=== PATIENT | female | born 1940 | race Caucasian/White ===

== ENCOUNTER 2019-07-19 11:18 | Emergency (ER) | payer MEDICARE, OTHER ==
[2019-07-19 11:25] VITALS: BP 163/74; PULSE 75
--- NOTE | 2019-07-19 11:35 | EDM.PDOC ---
ED HPI GENERAL MEDICAL PROBLEM - General Chief Complaint: Abdominal Pain Stated Complaint: [facility] Time Seen by Provider: 07/19/19 11:26 Source of Information: Reports: Patient, EMS Notes Reviewed, RN Notes Reviewed History Limitations: Reports: No Limitations - History of Present Illness INITIAL COMMENTS - FREE TEXT/NARRATIVE: Patient is an 79-year-old female who presents to the ED via [facility], for the evaluation of abdominal pain. Patient notes she was awakened from sleep at around 130 this morning today, with periumbilical pain that has now radiated to her right lower quadrant. She states she did not get much sleep last night, as it was hard to find a comfortable position due to the pain. Patient woke up at 6 AM, and the pain was still there. She notes that the pain is kind of a constant ache, but intensifies with a strong cramp sensation from time to time. She notes that the bumps in the road do not feel so great as well. She denies any fevers or chills, nausea/vomiting/diarrhea, chest pain or shortness of breath, or any urinary issues like dysuria, urinary frequency or urinary urgency. Patient notes she has not had any abdominal surgeries, but did have a hysterectomy, but her ovaries are still in place. Patient notes that she did also have a normal bowel movement this morning. She did not take any sort of medications at home for the pain. She has never felt pain like this in her abdomen before. The patient does note a most recent history of issues with her blood pressure, she was evaluated at the clinic earlier this week, as she felt her heart was racing, she states that she was started on diltiazem for this, she has had pretty good relief of symptoms since starting the diltiazem. She does have a primary care provider, this is Dr. Brian Tobias out of [facility]. Right Lower Abdomen Pain Score (Numeric/FACES): 7 - Related Data Allergies Allergy/AdvReac Type Severity Reaction Status Date / Time ibuprofen Allergy Stomach Verified 07/19/19 11:25 Upset Home Meds: Home Meds Losartan Potassium 100 mg PO DAILY 05/14/14 [History] hydroCHLOROthiazide [Hydrochlorothiazide] 12.5 mg PO DAILY 05/14/14 [History] Ciprofloxacin [Ciprofloxacin HCl] 500 mg PO BID #14 tab 07/19/19 [Rx] Dicyclomine [Bentyl] 20 mg PO QID PRN #24 tab 07/19/19 [Rx] Diltiazem HCl [Diltiazem 24Hr ER] 120 mg PO DAILY 07/19/19 [History] Multivitamin [Multivitamins] 1 cap PO DAILY 07/19/19 [History] metroNIDAZOLE [Flagyl] 500 mg PO Q8H #21 tab 07/19/19 [Rx] Past Medical History HEENT History: Reports: Impaired Vision Cardiovascular History: Reports: Hypertension Gastrointestinal History: Reports: Colon Polyp, GERD Musculoskeletal History: Reports: Osteoarthritis - Infectious Disease History Infectious Disease History: Reports: Chicken Pox, Measles, Mumps - Past Surgical History HEENT Surgical History: Reports: Oral Surgery Female Surgical History: Reports: Hysterectomy Musculoskeletal Surgical History: Reports: Other (See Below) Other Musculoskeletal Surgeries/Procedures:: bunion removal x3 Social & Family History - Family History Family Medical History: Noncontributory - Tobacco Use Smoking Status *Q: Former Smoker Used Tobacco, but Quit: Yes Month/Year Tobacco Last Used: 1967 - Caffeine Use Caffeine Use: Reports: Coffee - Recreational Drug Use Recreational Drug Use: No - Living Situation & Occupation Living situation: Reports: , with Spouse Occupation: Retired ED ROS GENERAL - Review of Systems Review Of Systems: See Below Constitutional: Denies: Fever, Chills, Malaise, Decreased Appetite HEENT: Reports: No Symptoms Respiratory: Denies: Shortness of Breath Cardiovascular: Denies: Chest Pain Endocrine: Reports: No Symptoms GI/Abdominal: Reports: Abdominal Pain (Periumbilical/RLQ pain). Denies: Constipation, Diarrhea, Decreased Appetite, Nausea, Vomiting : Denies: Dysuria, Flank Pain, Frequency, Urgency Musculoskeletal: Reports: Back Pain (chronic d/t scoliosis). Denies: Leg Pain Skin: Reports: No Symptoms Neurological: Reports: No Symptoms Psychiatric: Reports: No Symptoms Hematologic/Lymphatic: Reports: No Symptoms Immunologic: Reports: No Symptoms ED EXAM, GI/ABD - Physical Exam Exam: See Below Exam Limited By: No Limitations General Appearance: Alert, WD/WN, No Apparent Distress Eyes: Bilateral: Normal Appearance Ears: Normal External Exam Nose: Normal Inspection Throat/Mouth: Normal Inspection, Normal Lips, Normal Teeth, Normal Gums, Normal Oropharynx, Normal Voice, No Airway Compromise Head: Atraumatic, Normocephalic Neck: Normal Inspection Respiratory/Chest: No Respiratory Distress, Lungs Clear, Normal Breath Sounds, No Accessory Muscle Use, Chest Non-Tender Cardiovascular: Normal Peripheral Pulses, Regular Rate, Rhythm, No Murmur GI/Abdominal Exam: Normal Bowel Sounds, Soft, No Distention, No Mass, Tender ( RLQ/periumbilical). No: Guarding, Rigid, Rebound Extremities: Normal Inspection, Normal Capillary Refill Neurological: Alert, Oriented, Normal Cognition, No Motor/Sensory Deficits Psychiatric: Normal Affect, Normal Mood Skin Exam: Warm, Dry, Intact, Normal Color, No Rash Course - Vital Signs Last Recorded V/S: Last Vital Signs Temp 97.2 F 07/19/19 11:23 Pulse 75 07/19/19 11:23 Resp 18 07/19/19 11:23 BP 163/74 H 07/19/19 11:23 Pulse Ox 94 L 07/19/19 11:23 - Orders/Labs/Meds Orders: Active Orders 24 hr Category Date Time Status Abdomen Pelvis w Cont [CT] Stat Exams 07/19/19 11:44 Ordered Sodium Chloride 0.9% [Normal Saline] 1,000 ml Med 07/19/19 11:45 Ordered IV ASDIRECTED Sodium Chloride 0.9% [Saline Flush] Med 07/19/19 13:32 Active 10 ml FLUSH ONETIME PRN Medication Orders Sodium Chloride (Normal Saline) 1,000 mls @ 500 mls/hr IV ASDIRECTED MILADIS Last Admin: 07/19/19 12:11 Dose: 500 mls/hr Sodium Chloride (Saline Flush) 10 ml FLUSH ONETIME PRN PRN Reason: IV FLUSH Last Admin: 07/19/19 13:37 Dose: 10 ml Labs: Laboratory Tests 07/19/19 07/19/19 07/19/19 Range/Units 12:05 12:05 13:15 WBC 12.62 H (3.98-10.04) K/mm3 RBC 5.00 (3.98-5.22) M/mm3 Hgb 14.8 (11.2-15.7) gm/dl Hct 44.2 (34.1-44.9) % MCV 88.4 (79.4-94.8) fl MCH 29.6 (25.6-32.2) pg MCHC 33.5 (32.2-35.5) g/dl RDW Std Deviation 42.9 (36.4-46.3) fL Plt Count 267 (182-369) K/mm3 MPV 9.7 (9.4-12.3) fl Neutrophils % (Manual) 55 (40-60) % Band Neutrophils % 0 (0-10) % Lymphocytes % (Manual) 32 (20-40) % Atypical Lymphs % 0 % Monocytes % (Manual) 10 (2-10) % Eosinophils % (Manual) 3 (0.7-5.8) % Basophils % (Manual) 0 L (0.1-1.2) Platelet Estimate Adequate RBC Morph Comment Normal Sodium 133 L (136-145) mEq/L Potassium 3.5 (3.5-5.1) mEq/L Chloride 97 L (98-107) mEq/L Carbon Dioxide 29 (21-32) mEq/L Anion Gap 10.5 (5-15) BUN 13 (7-18) mg/dL Creatinine 0.7 (0.55-1.02) mg/dL Est Cr Clr Drug Dosing TNP Estimated GFR (MDRD) > 60 (>60) mL/min BUN/Creatinine Ratio 18.6 H (14-18) Glucose 90 (83-115) mg/dL Calcium 9.2 (8.5-10.1) mg/dL Total Bilirubin 0.7 (0.2-1.0) mg/dL AST 24 (15-37) U/L ALT 23 (14-59) U/L Alkaline Phosphatase 67 (46-116) U/L Total Protein 7.8 (6.4-8.2) g/dl Albumin 4.1 (3.4-5.0) g/dl Globulin 3.7 gm/dL Albumin/Globulin Ratio 1.1 (1-2) Urine Color Yellow (Yellow) Urine Appearance Clear (Clear) Urine pH 7.0 (5.0-8.0) Ur Specific [place] 1.025 (1.005-1.030) Urine Protein Negative (Negative) Urine Glucose (UA) Negative (Negative) Urine Ketones Trace H (Negative) Urine Occult Blood Negative (Negative) Urine Nitrite Negative (Negative) Urine Bilirubin Negative (Negative) Urine Urobilinogen 0.2 (0.2-1.0) Ur Leukocyte Esterase Negative (Negative) Urine RBC 0-5 (0-5) /hpf Urine WBC 0-5 (0-5) /hpf Ur Squamous Epith Cells 0-5 (0-5) /hpf Urine Bacteria Few (FEW) /hpf Urine Mucus Rare (FEW) /hpf Meds: Medications Generic Name Dose Route Start Last Admin Trade Name Freq PRN Reason Stop Dose Admin Sodium Chloride 1,000 mls @ 500 mls/hr 07/19/19 11:45 07/19/19 12:11 Normal Saline IV 500 mls/hr ASDIRECTED MILADIS Administration Sodium Chloride 10 ml 07/19/19 13:32 07/19/19 13:37 Saline Flush FLUSH 10 ml ONETIME PRN Administration IV FLUSH Discontinued Medications Generic Name Dose Route Start Last Admin Trade Name Freq PRN Reason Stop Dose Admin Diatrizoate Meglum/Diatrizoate Sod 120 ml 07/19/19 13:32 07/19/19 13:36 Gastrografin 37% PO 07/19/19 13:33 90 ml ONETIME ONE Administration Dicyclomine HCl 20 mg 07/19/19 14:47 Bentyl PO 07/19/19 14:48 ONETIME ONE Iopamidol 100 ml 07/19/19 13:32 07/19/19 13:36 Isovue-300 (61%) IVPUSH 07/19/19 13:33 100 ml ONETIME ONE Administration Ondansetron HCl 4 mg 07/19/19 11:44 07/19/19 12:10 Zofran IVPUSH 07/19/19 11:45 4 mg ONETIME ONE Administration - Re-Assessments/Exams Free Text/Narrative Re-Assessment/Exam: 07/19/19 11:52 Patient presents to the ED for the evaluation of abdominal pain. Did order IV with IV fluids, 4 mg Zofran, CBC, CMP, UA and an abdominal pelvis CT with oral and IV contrast for further evaluation. 07/19/19 14:[address] is done, and read per [facility], they do appreciate pericolonic fat stranding noted adjacent to the ascending colon and transverse colon consistent with mild colitis. Mild thickening of the lang of the small bowel consistent with enteritis and ileus. But no definite small bowel as imaged. The appendix was visualized, and does appear to be within normal limits. I did discuss the findings with Dr. Geiger, and he suggests placing the patient on a combination of Cipro and Flagyl for the colitis and sending her home at this time. I will discuss the findings with the patient and likely discharge her home with these antibiotics and have her follow-up with her primary care provider sometime this next week if not feeling much better. Departure - Departure Time of Disposition: 14:58 Disposition: Home, Self-Care 01 Condition: Fair Clinical Impression: Colitis Abdominal pain Qualifiers: Abdominal location: periumbilical Qualified Code(s): R10.33 - Periumbilical pain - Discharge Information *PRESCRIPTION DRUG MONITORING PROGRAM REVIEWED*: No *COPY OF PRESCRIPTION DRUG MONITORING REPORT IN PATIENT RANDELL: No Prescriptions: Ciprofloxacin [Ciprofloxacin HCl] 500 mg PO BID #14 tab Dicyclomine [Bentyl] 20 mg PO QID PRN #24 tab PRN Reason: Abdominal Pain metroNIDAZOLE [Flagyl] 500 mg PO Q8H #21 tab Instructions: Colitis Forms: ED Department Discharge Additional Instructions: You were evaluated in the ER today regarding your abdominal pain. You did get some IV fluids, had some labs drawn, and had an abdomen pelvis CT done. Your labs are essentially within normal limits, there is no sign of any acute bacterial infection, your electrolytes were also within normal limits, your kidney function and liver function also look great. Your CT did demonstrate some inflammation around the ascending colon, and the transverse colon, that is consistent with mild colitis. There was no small bowel obstruction identified. You will be treated with 2 different antibiotics, ciprofloxacin 500 mg twice daily, and Flagyl 500 mg 3 times daily for the next 7 days for management of this. You were also given a prescription for dicyclomine, this is to help with the abdominal cramping, please take 1 tab 4 times daily as needed for abdominal cramps. These medications were electronically prescribed to the [facility] pharmacy located near [facility]. Recommend that you follow-up with your primary care provider, sometime this next week. You will need to try to give the antibiotics a good 24 to 48 hours to take effect. If you should develop worsening abdominal pain, or worsening bloating, this would be cause for concern to come to the ER, as there might be a small obstruction has developed. Please return to the ED at any time if your symptoms change or worsen. - My Orders Last 24 Hours: My Active Orders 07/19/19 11:44 Abdomen Pelvis w Cont [CT] Stat 07/19/19 11:45 Sodium Chloride 0.9% [Normal Saline] 1,000 ml IV ASDIRECTED 07/19/19 13:32 Sodium Chloride 0.9% [Saline Flush] 10 ml FLUSH ONETIME PRN - Assessment/Plan Last 24 Hours: My Active Orders 07/19/19 11:44 Abdomen Pelvis w Cont [CT] Stat 07/19/19 11:45 Sodium Chloride 0.9% [Normal Saline] 1,000 ml IV ASDIRECTED 07/19/19 13:32 Sodium Chloride 0.9% [Saline Flush] 10 ml FLUSH ONETIME PRN
[2019-07-19] MEDS ORDERED: Ondansetron 4 MG/2 ML SDV IVPUSH ONE (11:44)
[2019-07-19] MEDS ORDERED: Sodium Chloride 0.9% 1,000 ML IV SCH (11:45)
[2019-07-19] MEDS ORDERED: Sodium Chloride 0.9% 10 ML Syringe FLUSH PRN (13:32)
[2019-07-19] MEDS ORDERED: Iopamidol 612 MG/ML 100 ML Bottle IVPUSH ONE (13:32)
[2019-07-19] MEDS ORDERED: Diatrizoate Meglumine/Diatrizoate Sodium 37% 120 ML Bottle PO ONE (13:32)
[2019-07-19] MEDS ORDERED: Dicyclomine 10 MG Cap PO ONE (14:47)
--- NOTE | 2019-07-21 09:12 | CT ---
CT abdomen and pelvis Technique: Multiple axial sections were obtained from above the dome of the diaphragm inferiorly through the pubic symphysis. Intravenous and oral contrast was utilized. Delayed images were obtained through the bladder. Comparison: No prior abdominal imaging is available. Findings: Slight atelectasis is noted within the right lung base. Nothing acute is appreciated within either lung base. Mild coronary artery calcification is seen. Heart is mildly enlarged. Small amount of fluid is identified around the liver. Minimal fluid is noted within the pelvis. Liver shows a minimal low density lesion within the right lobe measuring about 6 mm. This is too small to accurately measure by Hounsfield unit measurement but statistically is most likely due to a cyst. Kidneys show several small cysts. Delayed image shows contrast within the bladder. Bowel wall thickening is seen within distal ileal loops and small bowel is mildly prominent in size. Appendix is seen which is normal. Pancreas appears within normal limits. Very minimal areas of increased density within the adjacent fat of the transverse and right colon which is most likely chronic. I do not believe that there is an acute colitis. Small fat-containing umbilical hernia is noted. Moderately large hiatal hernia is seen. Gallbladder contains no calcified gallstones. Scoliosis is noted within the spine with diffuse degenerative change. Impression: 1. Dilated small bowel loops. Wall thickening within distal ileal loops compatible with enteritis. Dilated small bowel loops most likely representing ileus from the enteritis. 2. Slight increased density within the fat around the transverse and right colon which is most likely chronic. I do not believe any definite acute colitis is present. 3. Small amount of fluid around the right lobe of the liver. Minimal fluid within the pelvis. This is most likely reactive from the small bowel process. 4. Other nonacute findings as noted above. Diagnostic code #3 This report was dictated in [place] Standard Time I mostly agree with preliminary report issued by [facility] (please see above) ([facility] report finalized on 07/19/19, 3:10 PM Central Time)
== END 2019-07-19 15:22 | disposition home or self-care (01) ==
LOC: JD.ED 11:18
DX: K52.9 Noninfective gastroenteritis and colitis, unspecified (principal); I10 Essential (primary) hypertension; Z88.6 Allergy status to analgesic agent; Z87.891 Personal history of nicotine dependence; Z79.899 Other long term (current) drug therapy
CPT/HCPCS: 36415; 74177; 80053; 81001; 85007; 85027; 96361; 96374; 99284; A9270; J2405; J7040; Q9963; Q9967; J7030

== ENCOUNTER 2021-01-09 13:44 | Emergency (ER) | payer MEDICARE, OTHER ==
[2021-01-09 13:56] VITALS: BP 162/107; PULSE 113
[2021-01-09] MEDS ORDERED: Diphtheria,Pertussis(Acell),Tetanus Vaccine 0.5 ML Syringe IM ONE (14:31)
--- NOTE | 2021-01-09 14:31 | EDM.PDOC ---
ED HPI GENERAL MEDICAL PROBLEM - General Chief Complaint: Upper Extremity Injury/Pain Stated Complaint: LT RING FINGER LAC Time Seen by Provider: 01/09/21 13:46 Source of Information: Reports: Patient, Significant Other History Limitations: Reports: No Limitations - History of Present Illness INITIAL COMMENTS - FREE TEXT/NARRATIVE: He had a trip and fall landing on outstretched finger injuring her left ring finger with an avulsion to the tip of her ring finger on the left she also hit her head and hit the right mastoid area. No loss of consciousness associated with it no neck pain or chest pain or breathing problems with it. She does take Eliquis for atrial fibrillation however. Denies any nausea vomiting blurred vision or focal neurologic changes. Last tetanus has been greater than 10 years. No allergies to anesthetics. Right Handed. Left Finger-Ring Pain Score (Numeric/FACES): 7 - Related Data Allergies Allergy/AdvReac Type Severity Reaction Status Date / Time ibuprofen Allergy Stomach Verified 01/09/21 13:56 Upset Home Meds: Home Meds Losartan Potassium 100 mg PO DAILY 05/14/14 [History] hydroCHLOROthiazide [Hydrochlorothiazide] 12.5 mg PO DAILY 05/14/14 [History] Ciprofloxacin [Ciprofloxacin HCl] 500 mg PO BID #14 tab 07/19/19 [Rx] Dicyclomine [Bentyl] 20 mg PO QID PRN #24 tab 07/19/19 [Rx] Multivitamin [Multivitamins] 1 cap PO DAILY 07/19/19 [History] dilTIAZem HCL [Diltiazem 24Hr ER] 120 mg PO DAILY 07/19/19 [History] metroNIDAZOLE [Flagyl] 500 mg PO Q8H #21 tab 07/19/19 [Rx] cephALEXin [Keflex] 500 mg PO BID #9 cap 01/09/21 [Rx] Past Medical History HEENT History: Reports: Impaired Vision Cardiovascular History: Reports: Hypertension Gastrointestinal History: Reports: Colon Polyp, GERD Musculoskeletal History: Reports: Osteoarthritis - Infectious Disease History Infectious Disease History: Reports: Chicken Pox, Measles, Mumps - Past Surgical History HEENT Surgical History: Reports: Oral Surgery Cardiovascular Surgical History: Reports: Varicose Female Surgical History: Reports: Hysterectomy Musculoskeletal Surgical History: Reports: Other (See Below) Other Musculoskeletal Surgeries/Procedures:: bunion removal x3 Social & Family History - Family History Family Medical History: No Pertinent Family History - Tobacco Use Tobacco Use Status *Q: Never Tobacco User Second Hand Smoke Exposure: No - Caffeine Use Caffeine Use: Reports: None - Recreational Drug Use Recreational Drug Use: No - Living Situation & Occupation Living situation: Reports: , with Spouse Occupation: Retired Review of Systems - Review of Systems Review Of Systems: See Below Eyes: Reports: Other (Bilateral cataracts with intraocular lenses). Denies: Vision Change Ears: Reports: Pain. Denies: Dizziness, Tinnitus, Bloody Discharge, Clear Discharge Nose: Denies: Epistaxis Mouth/Throat: Reports: No Symptoms Respiratory: Reports: No Symptoms. Denies: Cough Cardiovascular: Denies: Chest Pain, Lightheadedness GI/Abdominal: Denies: Nausea, Vomiting Musculoskeletal: Reports: Hand Pain Skin: Reports: Wound Neurological: Reports: No Symptoms, Headache. Denies: Numbness, Paresthesia, Syncope, Tingling, Trouble Speaking, Weakness Psychiatric: Reports: No Symptoms ED EXAM, GENERAL - Physical Exam Exam: See Below Exam Limited By: No Limitations General Appearance: Alert, WD/WN, No Apparent Distress Eye Exam: Bilateral Eye: EOMI, PERRL Ears: Normal TMs Ear Exam: Bilateral Ear: TM normal Nose: Normal Inspection Throat/Mouth: Normal Inspection, Normal Oropharynx Head: Other (Some swelling and redness on the right mastoid/posterior auricular area.) Respiratory/Chest: No Respiratory Distress, Lungs Clear, No Accessory Muscle Use Cardiovascular: Normal Peripheral Pulses, Regular Rate, Rhythm, No Edema GI/Abdominal: Normal Bowel Sounds, Non-Tender Extremities: Other (Avulsion laceration of the tip of the ring finger, nailbed seems to be intact there is no subungual hematoma, distal flexion extension of the DIP is stable with FDS and FDP mechanisms. Sensation otherwise grossly intact some for the area of the avulsion. Her ring is still on her finger however. T) Neurological: Alert, Oriented, CN II-XII Intact, Normal Cognition, Normal Gait, No Motor/Sensory Deficits Course - Vital Signs Text/Narrative:: Head injury on Coumadin sent for CT scan, we will need to x-ray the right finger but also perform block for examination cleaning and possible repair they did bring a piece of the skin will check to see if there is any viability although seems low likelihood. Last Recorded V/S: Last Vital Signs Temp 97.9 F 01/09/21 13:54 Pulse 113 H 01/09/21 13:54 Resp 16 01/09/21 13:54 BP 162/107 H 01/09/21 13:54 Pulse Ox 93 L 01/09/21 13:54 - Orders/Labs/Meds Orders: Active Orders 24 hr Category Date Time Status Vaccines to be Administered [RC] PER UNIT ROUTINE Care 01/09/21 14:31 Active Meds: Medications Discontinued Medications Generic Name Dose Route Start Last Admin Trade Name Chely PRN Reason Stop Dose Admin Diphtheria/Tetanus/Acell Pertussis 0.5 ml 01/09/21 14:31 Diphtheria,Pertussis(Acell),Tetanus Vaccine 0.5 Ml Syringe IM 01/09/21 14:32 .ONCE ONE Diphtheria/Tetanus/Acell Pertussis Confirm 01/09/21 15:36 Diphtheria,Pertussis(Acell),Tetanus Vaccine 0.5 Ml Syringe Administered 01/09/21 15:37 Dose 0.5 ml .ROUTE .STK-MED ONE Lidocaine HCl 10 ml 01/09/21 14:34 Lidocaine 1% 10 Ml Mdv INJECT 01/09/21 14:35 ONETIME ONE - Radiology Interpretation Free Text/Narrative:: X-ray of the fourth finger reveals small soft tissue and bony uptake in the distal fourth finger minimal fracture within the distal fourth finger otherwise degenerative changes and osteopenia noted. - Re-Assessments/Exams Free Text/Narrative Re-Assessment/Exam: 01/09/21 16:18 Placed the metacarpal block with 1% lidocaine plain anesthetic with good block, irrigated and washed the wound thoroughly. Cauterize some of the distal bleeding sites. Placed antibiotic ointment Xeroform gauze and tube gauze. We will place a finger guard splint, patient will follow up with orthopedist. I discussed the case with would like to see her on Sunday. We will place her on Keflex 3 times a day for 5 days to prevent infection Return precautions reviewed. Departure - Departure Time of Disposition: 16:25 Disposition: Home, Self-Care 01 Condition: Fair Clinical Impression: Closed fracture of tuft of distal phalanx of finger Avulsion, finger tip Qualifiers: Encounter type: initial encounter Qualified Code(s): S61.209A - Unspecified open wound of unspecified finger without damage to nail, initial encounter - Discharge Information Instructions: Finger Fracture, Adult, [id number], Deep Skin Avulsion Forms: ED Department Discharge Additional Instructions: Keep finger clean and dry splint in place elevate may try ice. I placed you on an antibiotic called Keflex 500 mg twice a day for 5 days. Follow-up with ([phone]) on Sunday call tomorrow for an radhika ointment. Dressing on unless increasing bleeding, pain, swelling, red streaking, fevers or any worsening. If that were to occur return to the emergency room Sepsis Event Note (ED) - Evaluation Sepsis Screening Result: No Definite Risk - Focused Exam Vital Signs: Vital Signs Temp Pulse Resp BP Pulse Ox 01/09/21 13:54 97.9 F 113 H 16 162/107 H 93 L - My Orders Last 24 Hours: My Active Orders 01/09/21 14:31 Vaccines to be Administered [RC] PER UNIT ROUTINE - Assessment/Plan Last 24 Hours: My Active Orders 01/09/21 14:31 Vaccines to be Administered [RC] PER UNIT ROUTINE
[2021-01-09] MEDS ORDERED: Lidocaine 1% 10 ML MDV INJECT ONE (14:34)
--- NOTE | 2021-01-09 14:39 | CR ---
Left fourth finger: 3 views of the left fourth finger were obtained. Comparison: No prior finger or hand exam is available. 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 Very minimal fracture is noted within the residual distal phalanx. Degenerative change is noted within the MCP, DIP and PIP joints. Osteopenia is present. Impression: 1. 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 2. Minimal fracture within the distal fourth finger. 3. Degenerative change and osteopenia. Diagnostic code #3
--- NOTE | 2021-01-09 15:11 | CT ---
Head CT Technique: Multiple axial sections through the brain were obtained. Intravenous contrast was not utilized. Reconstructed coronal and sagittal images were obtained. Comparison: No prior intracranial imaging is available. Findings: Ventricles along with basal cisterns and sulci over the convexities are within normal limits for the patient's age. No abnormal parenchymal densities are seen. No evidence of intracranial hemorrhage. No midline shift or mass-effect is seen. Bone window settings were reviewed. Visualized mastoid and paranasal sinuses show nothing acute. No acute calvarial abnormality is appreciated. Impression: 1. Age related change. 2. Nothing acute is appreciated on noncontrast head CT study. Diagnostic code #1
[2021-01-09] MEDS ORDERED: Diphtheria,Pertussis(Acell),Tetanus Vaccine 0.5 ML Syringe ONE ×2 (15:36→16:27)
[2021-01-09] MEDS ORDERED: Cephalexin 500 MG Cap PO ONE (16:23)
== END 2021-01-09 17:25 | disposition home or self-care (01) ==
LOC: JD.ED 13:44
DX: S62.634A Displaced fracture of distal phalanx of right ring finger, initial encounter for closed fracture (principal); S61.204A Unspecified open wound of right ring finger without damage to nail, initial encounter; I10 Essential (primary) hypertension; Z88.8 Allergy status to other drugs, medicaments and biological substances; Z23 Encounter for immunization; S09.8XXA Other specified injuries of head, initial encounter; W18.09XA Striking against other object with subsequent fall, initial encounter
CPT/HCPCS: 70450; 73140; 90471; 90715; 99284; A9270; 99283

== ENCOUNTER 2022-06-23 22:43 | Emergency (ER) | payer MEDICARE, OTHER ==
[2022-06-24] MEDS ORDERED: Potassium Chloride 20 MEQ Tab.ER PO ONE (00:34)
[2022-06-24] MEDS ORDERED: Magnesium Oxide 400 MG Tab PO ONE (00:34)
[2022-06-24 01:06] VITALS: BP 124/74; PULSE 92
== END 2022-06-24 01:05 | disposition home or self-care (01) ==
LOC: SUPCPDRO 22:43 → JD.ED 22:43
DX: I48.91 Unspecified atrial fibrillation (principal); I10 Essential (primary) hypertension; Z88.6 Allergy status to analgesic agent; Z79.899 Other long term (current) drug therapy; Z79.01 Long term (current) use of anticoagulants
CPT/HCPCS: 36415; 71045; 80053; 83735; 84484; 85025; 85610; 85730; 93005; 99285; A9270; 93010; 99283

== ENCOUNTER 2022-07-29 07:50 | Emergency (ER) | payer MEDICARE, OTHER ==
[2022-07-29] MEDS ORDERED: Albuterol 6.7 GM Inhaler INH ONE (07:51)
[2022-07-29] MEDS ORDERED: Sodium Chloride 0.9% 10 ML Syringe FLUSH PRN (08:25)
[2022-07-29 09:46] LABS: CORONAVIRUS COVID-19 NAA NEGATIVE (NEGATIVE)
[2022-07-29 09:52] LABS: ESTIMATED GFR 73 mL/min (>60)
[2022-07-29] MEDS ORDERED: Albuterol/Ipratropium 3.0-0.5 MG/3 ML Neb Soln NEB ONE (10:59)
[2022-07-29] MEDS ORDERED: Albuterol 6.7 GM Inhaler INH PRN (11:23)
[2022-07-29 12:04] VITALS: BP 114/78; PULSE 90
== END 2022-07-29 12:06 | disposition home or self-care (01) ==
LOC: JD.ED 07:50
DX: J10.1 Influenza due to other identified influenza virus with other respiratory manifestations (principal); I11.0 Hypertensive heart disease with heart failure; I50.9 Heart failure, unspecified; I48.91 Unspecified atrial fibrillation; M19.90 Unspecified osteoarthritis, unspecified site; I45.10 Unspecified right bundle-branch block; Z88.6 Allergy status to analgesic agent; Z79.01 Long term (current) use of anticoagulants; Z79.899 Other long term (current) drug therapy; Z20.822 Contact with and (suspected) exposure to COVID-19
CPT/HCPCS: 0241U; 36415; 71045; 80053; 81001; 82553; 83735; 83880; 85025; 85610; 85730; 86140; 86738; 93005; 94640; 99285; A9270; J3490; J7620-GY

== ENCOUNTER 2025-07-20 13:14 | Emergency (ER) | payer MEDICARE, OTHER ==
[2025-07-20] MEDS ORDERED: Sodium Chloride 0.9% 10 ML Syringe FLUSH PRN (13:47)
[2025-07-20 14:57] LABS: BASOPHILS ABSOLUTE AUTO 0.1 K/mm3 (0.0-0.2); BASOPHILS PERCENT AUTO 0.4 % (0.0-1.0); EOSINOPHILS ABSOLUTE AUTO 0.1 K/mm3 (0.0-0.4); EOSINOPHILS PERCENT AUTO 0.7 % (0.0-6.0); IMMATURE GRAN ABSOLUTE AUTO 0.08 K/mm3 (0.00-0.05); IMMATURE GRAN PERCENT AUTO 0.5 % (0.0-0.4); LYMPHOCYTES ABSOLUTE AUTO 7.6 K/mm3 (1.0-4.8); LYMPHOCYTES PERCENT AUTO 46.4 % (24.0-44.0); MEAN PLATELET VOLUME 9.1 fl (9.4-12.3); MONOCYTES ABSOLUTE AUTO 1.6 K/mm3 (0.0-0.8); MONOCYTES PERCENT AUTO 9.6 % (0.0-8.0); NEUTROPHILS ABSOLUTE AUTO 6.9 K/mm3 (1.8-7.7); NEUTROPHILS PERCENT AUTO 42.4 % (41.0-71.0); NRBC ABSOLUTE 0.00 (0.00-0.02); NRBC PERCENT 0.0 % (0.0-0.2); PLATELET COUNT,PLT 234 K/mm3 (150-400); RED BLOOD CELL COUNT 4.76 M/mm3 (4.10-5.30); WHITE BLOOD CELL COUNT,WBC 16.40 K/mm3 (3.9-11.3)
[2025-07-20 15:30] LABS: A/G RATIO 1.0 (1-2); ALANINE AMINOTRANSFERASE,ALT 30 U/L (14-59); ASPARTATE AMNIOTRANSFERASE,AST 22 U/L (15-37); BILIRUBIN TOTAL 0.9 mg/dL (0.2-1.0); BLOOD UREA NITROGEN,BUN 23 mg/dL (7-18); CARBON DIOXIDE,CO2 28 mEq/L (21-32); CHLORIDE,CL 93 mEq/L (98-107); CREATININE 1.0 mg/dL (0.55-1.02); EST CRCL DRUG DOSING (CG) 34.23 mL/min; ESTIMATED GFR 55 mL/min (>60); GLUCOSE RANDOM 96 mg/dL (70-99); POTASSIUM,K 3.7 mEq/L (3.5-5.1); PROTEIN TOTAL,TP 6.7 g/dl (6.4-8.2); SODIUM,NA 129 mEq/L (136-145); TROPONIN I HIGH SENSITIVITY 18 pg/mL (<=51)
[2025-07-20 18:10] LABS: APPEARANCE,URINE CLEAR (Clear); GLUCOSE,URINE NEGATIVE (Negative); OCCULT BLOOD,URINE 3+ (Negative)
[2025-07-20 18:17] LABS: EPITHELIAL CELLS,URINE 0-5 /hpf (0-5); FINE GRANULAR CASTS,URINE 0-5 /lpf (0-5)
[2025-07-20] MEDS: Furosemide 40 MG/4 ML VIAL IVPUSH ONE (18:27)
[2025-07-20 19:22] VITALS: BP 132/68; PULSE 63
== END 2025-07-20 19:25 | disposition home or self-care (01) ==
LOC: JD.ED 13:14
DX: I11.0 Hypertensive heart disease with heart failure (principal); I50.9 Heart failure, unspecified; I48.91 Unspecified atrial fibrillation; Z91.018 Allergy to other foods; Z88.6 Allergy status to analgesic agent; Z79.899 Other long term (current) drug therapy; Z79.01 Long term (current) use of anticoagulants; Z86.16 Personal history of COVID-19; Z87.891 Personal history of nicotine dependence
CPT/HCPCS: 36415; 71045; 80053; 81001; 83880; 84484; 85025; 86140; 93005; 96374; 99284; J1938